=== PATIENT | female | born 2000 | race African-American/Black ===

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

== ENCOUNTER 2024-01-06 11:04 | Emergency (ER) | payer OTHER ==
[2024-01-06 11:22] VITALS: BP 105/71; PULSE 80; RESP 20; TEMP 98.3; BMI 29.2
[2024-01-06] MEDS ORDERED: ACETAMINOPHEN 325 MG TABLET (FP) ONE (11:52)
[2024-01-06] MEDS: ACETAMINOPHEN 500 MG TABLET (FP) PO ONE (11:55)
[2024-01-06 12:18] LABS: EPI CELLS >36 /uL (0-25.1); HYALINE CASTS 0 /uL (0-3.1); PH,URINE 7.5 (5.0-8.0); URINE APPEARANCE CLEAR; URINE BACTERIA 385 /uL (0-1359); URINE BILIRUBIN NEGATIVE (NEGATIVE); URINE COLOR YELLOW; URINE GLUCOSE (UA) NEGATIVE (NEGATIVE); URINE KETONE NEGATIVE (NEGATIVE); URINE LEUK ESTERASE TRACE (NEGATIVE); URINE NITRITE NEGATIVE (NEGATIVE); URINE PROTEIN NEGATIVE (NEGATIVE); URINE UROBILINOGEN 0.2 mg/dL (0.2-1.0); URINE WBC 9 /uL (0-25.8)
[2024-01-06 12:24] LABS: URINE RBC 21.1 /uL (0-23.9)
[2024-01-06 12:55] LABS: HCG,QUALITATIVE URINE Negative
== END 2024-01-06 14:16 | disposition home or self-care (01) ==
LOC: JERFT 11:04
DX: S01.81XD Laceration without foreign body of other part of head, subsequent encounter (principal); R51.9 Headache, unspecified; H53.10 Unspecified subjective visual disturbances; R42 Dizziness and giddiness; H57.12 Ocular pain, left eye; Y04.8XXD Assault by other bodily force, subsequent encounter; Z20.822 Contact with and (suspected) exposure to COVID-19
CPT/HCPCS: 0241U-QW; 70450-TC; 70486-TC; 73030-TC-RT-FY; 76512; 81003; 84703; 99285-25